=== PATIENT | male | born 1980 | race Caucasian/White ===

== ENCOUNTER 2016-11-12 14:16 | Emergency (ER) | payer SELFPAY ==
[~2016-11-12 14:16] MED LIST: Iopamidol 370 76% 125 ML VIAL FS ONE; Sodium Chloride 0.9% 100 ML BAG ONE
[2016-11-12] MEDS ORDERED: methylPREDNISolone Sod Succ/PF 125 MG/2 ML VIAL ONE (15:36)
[2016-11-12 16:00] LABS: ALT (SGPT) 38 U/L (0-55); AST (SGOT) 26 U/L (5-34); Albumin 4.1 g/dL (3.5-5.0); Alkaline Phosphatase 93 U/L (40-150); Anion Gap 18 mmol/L (10-20); BUN (Urea Nitrogen) 19 mg/dL (8.9-20.6); Bilirubin, Total 0.8 mg/dL (0.2-1.2); Calc. Creatinine Clearance 0 mL/min (70-130); Calcium 8.8 mg/dL (7.8-10.44); Carbon Dioxide 16 mmol/L (22-29); Chloride 109 mmol/L (98-107); Estimated GFR-MDRD 79; Globulin 2.9 g/dL (2.4-3.5); Glucose 118 mg/dL (70-105); Potassium 4.1 mmol/L (3.5-5.1); Sodium 139 mmol/L (136-145)
[2016-11-12 16:03] LABS: PTT 29.7 SEC (22.9-36.1); Prothrombin Time 13.9 SEC (12.0-14.7)
[2016-11-12 16:11] LABS: Lactic Acid 1.2 mmol/L (0.5-2.2)
[2016-11-12 16:18] LABS: D-Dimer Test 5.43 *mcg/mL (0.27-0.43)
[2016-11-12 16:21] LABS: #Basophils 0.1 thou/uL (0.0-0.2); #Eosinphils 0.2 thou/uL (0.0-0.7); #Lymphocytes 3.1 thou/uL (1.20-3.40); #Monocytes 0.8 thou/uL (0.11-0.59); #Neutrophils 6.3 thou/uL (1.40-6.50); %Basophils 1.4 % (0.0-1.0); %Eosinophils 1.9 % (0.0-10.0); %Lymphocytes 29.7 % (21.0-51.0); %Monocytes 7.1 % (0.0-10.0); %Neutrophils 59.9 % (42.0-75.0); Mean Corpuscular HGB CONC 34.4 g/dL (32.0-36.0); Mean Corpuscular Hemoglobin 31.2 pg (27.0-31.0); Mean Corpuscular Volume 90.6 fl (80.0-94.0); Mean Platelet Volume 6.4 fL (7.4-10.4); Platelet Count 325 thou/uL (130-400); RBC Distribution Width 12.6 % (11.5-14.5); Red Blood Cell (RBC) Count 4.49 mill/uL (4.70-6.10); White Blood Cell (WBC) Count 10.6 thou/uL (4.8-10.8)
[2016-11-12 16:26] LABS: Troponin I 0.028 ng/mL (< 0.028)
[2016-11-12 16:47] LABS: CKMB 0.8 ng/mL (0-6.6)
--- NOTE | 2016-11-12 17:05 | RAD ---
CHEST TWO VIEWS HISTORY: Cough. COMPARISON: 10/23/2016 FINDINGS: The heart size is enlarged. There is a parenchymal infiltrate in the left lower lobe. P arenchymal changes were seen on the previous exam, and appear fairly similar to that study. The per ihilar interstitial change seen on the prior exam has resolved. IMPRESSION 1. Cardiomegaly. 2. Left lower lobe infiltrate. POS: [facility]
--- NOTE | 2016-11-12 17:57 | ERRECORD ---
[facility] EMERGENCY RECORD HPI COUGH (14:42 LHOD) CHIEF COMPLAINT: Patient presents for evaluation of cough. HISTORIAN: History provided by patient. TIME COURSE: PT SEEN HERE 11/01--DIAGNOSED WITH LLL PNEUMONIA FOR WHICH HE WAS TREATED WITH ZITHROMAX FOR 10 DAYS. PT REPORTS FOR PAST 2 DAYS COUGH INCREASING WTIH DIFFUSE BODY ACHES. NOT AWARE IF FEVER. ROS (14:43 LHOD) CONSTITUTIONAL: Historian reports fatigue, denies fever. CARDIOVASCULAR: Historian denies chest pain. RESPIRATORY: Historian reports cough, reports shortness of breath. GI: Historian denies abdominal pain, denies nausea, denies vomiting. MUSCULOSKELETAL: Historian reports myalgias. SKIN: Historian denies rash. NEUROLOGIC: Historian denies headache. NOTES: All systems reviewed, negative except as described above. PAST MEDICAL HISTORY MEDICAL HISTORY: Flu vaccine not up to date, Tetanus immunization up to date, Pneumococcal vaccine not up to date, Past medical history includes cardiac history, coronary artery disease, Past medical history includes history of hypertension, which has been treated, Past medical history includes cardiac history, myocardial infarction, Treated with stent placement, Number of stents: 2, STATES 6 MA, Past medical history includes endocrine disease, hypothyroidism, Past medical history includes history of hypertension, which has been treated. ASCENDING AORTIC ANEURYSM. Flu vaccine not up to date, Tetanus immunization up to date, Pneumococcal vaccine not up to date, Past medical history includes history of hypertension, which has been treated, Past medical history includes cardiac history, myocardial infarction, Treated with stent placement, Number of stents: 2, STATES 6 MA, Past medical history includes endocrine disease, hypothyroidism, Past medical history includes history of hypertension, which has been treated. ASCENDING AORTIC ANEURYSM. 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 ([place] Nov 12, 2016 14:28 MDEB) PSYCHIATRIC HISTORY: no history of suicidal ideations, No history of suicide attempts, No history of hallucinations, No history of homicidal ideations, No history of violence towards others, Notes: PTSD. (Grace Nov 12, 2016 14:28 MDEB) SOCIAL HISTORY: Patient drinks socially, twice a month, Patient denies drug use, Patient currently uses tobacco, smokes cigarettes, Lives at home, with family, Patient drinks socially, rarely. (Grace Nov 12, 2016 14:28 MDEB) NOTES: Nursing records reviewed. (14:30 LHOD) &a-1R&a+25V*p+0X*[id number]*c202B*c15G*c2P*p-0X&a-25V&a+1R Name: Francesco Godfrey : 1980 M36 MedRec: [id number] AcctNum: [id number] Prepared: Grace Nov 12, 2016 18:17 by Interface Page 1 of 3 pMD [facility] EMERGENCY RECORD KNOWN ALLERGIES No Known Allergies (Unconfirmed) No Known Drug Allergies CURRENT MEDICATIONS No recorded medications VITAL SIGNS VITAL SIGNS: BP: 107/79, Pulse: 109, Resp: 20, Temp: 97.9 (Tympanic), Pain: 3, O2 sat: 97 on Room Air, Time: 11/12/2016 14:25. (14:25 MDEB) BP: 100/78, Pulse: 105, Resp: 24, Pain: 5, O2 sat: 98 on Room Air, Time: 11/12/2016 15:00. (15:00 MDEB) BP: 101/76, Pulse: 103, Resp: 22, O2 sat: 96 on Room Air, Time: 11/12/2016 15:30. (15:30 MDEB) BP: 102/79, Pulse: 106, Resp: 24, O2 sat: 97 on Room Air, Time: 11/12/2016 16:00. (16:00 MDEB) BP: 116/62, Pulse: 110, Resp: 26, O2 sat: 99 on Room Air, Time: 11/12/2016 16:30. (16:30 MDEB) BP: 107/83, Pulse: 107, Resp: 22, Temp: 97.7 (Tympanic), O2 sat: 95 on Room Air, Time: 11/12/2016 17:00. (17:00 MDEB) PHYSICAL EXAM (14:44 LHOD) CONSTITUTIONAL: Vital Signs Reviewed, Patient afebrile, Pulse, tachycardic, Blood pressure normal, Respiratory rate normal, Normal pulse oximetry, Patient alert and oriented to person, place and time, FREQUENT DRY COUGH. ENT: Pharynx exam normal. NECK: Neck exam included findings of normal range of motion, Trachea midline. RESPIRATORY CHEST: Respiratory exam included findings of no respiratory distress, No wheezing, Breath sounds diminished. CARDIOVASCULAR: Cardiovascular exam included findings of heart rate regular rate and rhythm, Heart sounds normal. ABDOMEN MALE: Abdominal exam included findings of abdomen nontender, Distension present. BACK: Back exam normal. UPPER EXTREMITY: Upper extremity exam normal. LOWER EXTREMITY: Left lower leg exam normal, Right lower leg exam normal. NEURO: Neuro exam findings include patient oriented to person, place and time, Speech normal. SKIN: no rash. EKG INTERPRETATION (16:02 LHOD) 12 LEAD EKG INTERPRETATION: 12 lead EKG interpreted by Emergency Department Physician at time of study, 12 lead EKG shows, sinus tachycardia, Rate (beats per minute): 103, with no &a-1R&a+25V*p+0X*n6205H*c202B*c15G*c2P*p-0X&a-25V&a+1R Name: Francesco Godfrey : 1980 M36 MedRec: [id number] AcctNum: [id number] Prepared: Grace Nov 12, 2016 18:17 by Interface Page 2 of 3 pMD [facility] EMERGENCY RECORD ectopics, T waves normal, [place] normal, Q WAVE IN LATERAL LEADS. POOR R WAVE PROGRESSION ANTERIOR LEADS. RADIOLOGYINTERPRETATION (15:16 LHOD) CHEST: Films of the chest show, to the left lower, Other findings: PACEMAKER, Chest CT, with contrast shows, patchy infiltrate, Other findings: MULTIPLE MEDIASTINAL AND HILAR ADENOPATHY WITH MULTIFOCAL PATCHY AIRSPACE DISEASE WITH CONSOLIDATION OF LEFT LINGULA, LEFT LOWER LOBE, RLL, RUL. STRANDING NEAR LATERAL PANCREATIC HEAD. LOW DENSITY LESIONS IN KIDNEYS WHICH MAY BE CYSTS, BUT UNABLE TO TELL WITH CERTAINTY., NO EVIDENCE OF PE. MEDICATION ADMINISTRATION SUMMARY Drug Name: methylPREDNISolone sodium succ intraveno, Dose Ordered: 125 mg, Route: IV Push, Status: Given, Time: 15:40 11/12/2016, Drug Name: DuoNeb, Dose Ordered: 3 mL, Route: Nebulize, Status: Given, Time: 14:45 11/12/2016, Detailed record available in Medication Service section. DOCTOR NOTES (16:30 LHOD) TEXT: 1630--AWAITING CT. 1641--CT COMPLETE. AWAITING REPORT. PT TELLS ME HIS HEALTH DIAGNOSTICS TEACHER IS , [facility] [id number]--ADVISED PT THAT WE TRANSFER HIM TO [facility] FOR WORKUP OF THE MULTIPLE NODULES / INFILTRATES IN HIS LUNGS FOR POSSIBLE INFECTIOUS OR MALIGNANCIES. PT REPORTS HE NEEDS TO SIGN OUT AMA. HE UNDERSTANDS RISK OF FROM CARDIORESPIRATORY FAILURE. HE REPORTS HE HAS TO TAKE HIS TRUCK SOMEWHERE, THEN WILL FOLLOW UP AT [facility] WITH HIS HEALTH DIAGNOSTICS TEACHER. HE IS MENTALLY COMPETENT AND SEEMS TO UNDERSTAND THE SERIOUS NATURE OF OUR FINDINGS. PROBLEM LIST No recorded problems DIAGNOSIS (17:10 LHOD) FINAL: PRIMARY: MULTI-LOBE PULMONARY LESIONS---UNKNOWN IF INFECTIOUS OR TUMORS, ADDITIONAL: CHF. PRESCRIPTION No recorded prescriptions DISPOSITION PATIENT: Disposition Type: Eloped, Disposition: Against Medical Advice, Condition: Guarded. (17:10 LHOD) Patient left the department. (17:41 MDEB) [place]: LHOD=MD Abbi, Harsha MDEB=DORY Kee, Nancy &a-1R&a+25V*p+0X*r2368R*c202B*c15G*c2P*p-0X&a-25V&a+1R Name: Francesco Godfrey : 1980 M36 MedRec: [id number] AcctNum: [id number] Prepared: Grace Nov 12, 2016 18:17 by Interface Page 3 of 3 pMD MTDD
--- NOTE | 2016-11-12 18:25 | PICIS ---
[facility] EMERGENCY RECORD TRIAGE (SunNov 12, 2016 14:28 MDEB) PATIENT: NAME: Francesco Godfrey, AGE: 36, GENDER: male, : Sun1980, TIME OF GREET: SunNov 12, 2016 14:17, PREFERRED LANGUAGE: Taiwanese, RACE: WHITE, ETHNICITY: Not or , FALL RISK: NO, ECODE BILLING MAP: [facility] ER, SSN: [id number], Zip Code: [address], KG WEIGHT: 109.77, PHONE: , , , PERSON ID: [id number], PCP: NO PCP. (SunNov 12, 2016 14:28 MDEB) TRIAGE NOTES: COUGH, FEEL BAD, "I CANT BREATH RIGHT" NOSE STOPPED UP. (SunNov 12, 2016 14:28 MDEB) COMPLAINT: NOT FEELING WELL. (SunNov 12, 2016 14:28 MDEB) ADMISSION: URGENCY: 3 Urgent, ADMISSION SOURCE: Home, TRANSPORT: Walk-in, BED: TRIAGE. (SunNov 12, 2016 14:28 MDEB) ASSESSMENT: Assessment: DX 3WKS WITH PNEUMONIA - PT FEELS THIS MAY BE COMING BACK. (SunNov 12, 2016 14:28 MDEB) PAIN: Patient complains of pain described as, aching, on a scale 0-10 patient rates pain as 3, Location ABD PAIN. (SunNov 12, 2016 14:28 MDEB) IMMUNIZATIONS: Tetanus immunization up to date. (SunNov 12, 2016 14:28 MDEB) TRIAGE SCREENING: Patient denies suicidal ideation, Patient denies presence of domestic violence. (SunNov 12, 2016 14:28 MDEB) PROVIDERS: TRIAGE NURSE: Nancy Kee RN. (SunNov 12, 2016 14:28 MDEB) VITAL SIGNS: BP 107/79, Pulse 109, Resp 20, Temp 97.9, (Tympanic), Pain 3, O2 Sat 97, on Room Air, Time 11/12/2016 14:25. (14:25 MDEB) PREVIOUS VISIT ALLERGIES: No Known Allergies. (SunNov 12, 2016 14:28 MDEB) KNOWN ALLERGIES No Known Allergies (Unconfirmed) No Known Drug Allergies CURRENT MEDICATIONS No recorded medications VITAL SIGNS VITAL SIGNS: BP: 107/79, Pulse: 109, Resp: 20, Temp: 97.9 (Tympanic), Pain: 3, O2 sat: 97 on Room Air, Time: 11/12/2016 14:25. (14:25 MDEB) BP: 100/78, Pulse: 105, Resp: 24, Pain: 5, O2 sat: 98 on Room Air, Time: 11/12/2016 15:00. (15:00 MDEB) BP: 101/76, Pulse: 103, Resp: 22, O2 sat: 96 on Room Air, Time: 11/12/2016 15:30. (15:30 MDEB) BP: 102/79, Pulse: 106, Resp: 24, O2 sat: 97 on Room Air, Time: 11/12/2016 16:00. (16:00 MDEB) BP: 116/62, Pulse: 110, Resp: 26, O2 sat: 99 on Room Air, Time: 11/12/2016 16:30. (16:30 MDEB) BP: 107/83, Pulse: 107, Resp: 22, Temp: 97.7 (Tympanic), O2 sat: 95 on &a-1R&a+25V*p+0X*b3552J*c202B*c15G*c2P*p-0X&a-25V&a+1R Name: Francesco Godfrey : 1980 M36 MedRec: [id number] AcctNum: [id number] Prepared: Grace Nov 12, 2016 18:22 by Interface Page 1 of 12 pMD [facility] EMERGENCY RECORD Room Air, Time: 11/12/2016 17:00. (17:00 MDEB) NURSING ASSESSMENT: RESPIRATORY /CHEST (14:51 MDEB) CONSTITUTIONAL: Patient arrives ambulatory, Gait steady, History obtained from patient, Patient appears comfortable, Patient cooperative, Patient alert, Oriented to person, place and time, Skin warm, Skin dry, Skin normal in color, Mucous membranes pink, Mucous membranes moist, Patient is well-groomed, Patient complains of COUGH, CONGESTION,. PAIN: on a scale 0-10 patient rates pain as 3, ABD PAIN. RESPIRATORY/CHEST: Lungs auscultated, Breath sounds with rhonchi, to the left upper lobe, to the left lower lobe, Respiratory assessment findings include respiratory effort easy, Respirations regular, Conversing normally, Neck and chest exam findings include trachea midline, Chest expansion equal, Chest movement symmetrical, Associated with cough, dry, non-productive. ENT: Ear assessment findings include ear normal to inspection, Nasal assessment findings include nose normal to inspection, Mouth and throat assessment findings include mouth inspection normal. NOTES: Emotional support needed and given, Patient tolerated procedure well. SAFETY: Side rails up, Cart/Stretcher in lowest position, Call light within reach, Hospital ID band on. NURSING PROCEDURE: ENGRAVER ORNAMENTAL DESIGN (14:40 MDEB) PATIENT IDENTIFIER: Patient actively involved in identification process, Patient's identity verified by patient stating name, Patient's identity verified by hospital ID bracelet. ENGRAVER ORNAMENTAL DESIGN: Cardiac monitoring indicated for COUGH, Patient placed on block making machine operator, Heart rate: 103, showing sinus tachycardia, Patient placed on non-invasive blood pressure monitor, Patient placed on continuous pulse oximetry. FOLLOW-UP: After procedure, alarms set and on, After procedure, patient tolerating monitoring. NOTES: Emotional support needed and given, Patient tolerated procedure well. SAFETY: Side rails up, Cart/Stretcher in lowest position, Family at bedside, Call light within reach, Hospital ID band on. NURSING PROCEDURE: DISCHARGE NOTE DISCHARGE: Patient signed out against medical advice, ambulating without assistance, driving self, unaccompanied, Summary of Care printed/ provided, Patient requested and was provided an electronic copy of Discharge Instructions, Transition record given to patient, Discharge instructions given to patient, Above person(s) verbalized understanding of discharge instructions and follow-up care, Patient treated and evaluated by physician, Notes: CT DISK ET LAB RESULTS SENT WITH PT. PT REPORTS HE WILL GO TO [facility] WHERE HIS &a-1R&a+25V*p+0X*o6193M*c202B*c15G*c2P*p-0X&a-25V&a+1R Name: Francesco Godfrey : 1980 M36 MedRec: [id number] AcctNum: [id number] Prepared: Grace Nov 12, 2016 18:22 by Interface Page 2 of 12 pMD [facility] EMERGENCY RECORD HOT WORKER IS BASED. (17:25 RACHEL) Patient discharged to home, ambulating without assistance, driving self, unaccompanied, Summary of Care printed/ provided, Patient requested and was provided an electronic copy of Discharge Instructions, Transition record given to patient, Discharge instructions given to patient, Above person(s) verbalized understanding of discharge instructions and follow-up care, Patient treated and evaluated by physician, Notes: CT DISK ET LAB RESULTS SENT. (17:38 MDEB) BELONGINGS: Belongings remain with patient, Valuables remain with patient. (17:25 MDEB) Belongings remain with patient, Valuables remain with patient. (17:38 MDEB) NOTES: Emotional support needed and given, Patient tolerated procedure well. (17:25 MDEB) Emotional support needed and given, Patient tolerated procedure well. (17:38 MDEB) NURSING PROCEDURE: EKG CHART (15:12 MDEB) PATIENT IDENTIFIER: Patient actively involved in identification process, Patient's identity verified by patient stating name, Patient's identity verified by hospital ID bracelet. EKG: EKG indicated for COUGH, CONGESTION,, 12 lead EKG performed on the left chest. FOLLOW-UP: After procedure, EKG for interpretation given to Dr. GO. NOTES: Emotional support needed and given, Patient tolerated procedure well. SAFETY: Side rails up, Cart/Stretcher in lowest position, Family at bedside, Call light within reach, Hospital ID band on. NURSING PROCEDURE: IV PATIENT IDENITIFIER: Patient actively involved in identification process, Patient's identity verified by patient stating name, Patient's identity verified by hospital ID bracelet. (15:20 MDEB) Patient actively involved in identification process, Patient's identity verified by patient stating name, Patient's identity verified by hospital ID bracelet. (17:10 MDEB) IV SITE 1: IV therapy indicated for medication administration, IV established, to the right antecubital, using an 18 gauge catheter, in three attempts, IV site prepped with ALCOHOL, Saline lock established, Flushed with normal saline (mls): 10, Labs drawn at time of placement, labeled in the presence of the patient and sent to lab, Blood cultures drawn at time of placement, labeled in the presence of the patient and sent to lab. (15:20 MDEB) FOLLOW-UP SITE 1: After procedure, sterile transparent dressing applied. (15:20 MDEB) IV discontinued, due to patient being discharged, catheter intact. (17:10 MDEB) NOTES: Emotional support needed and given, Patient tolerated procedure well. (15:20 MDEB) &a-1R&a+25V*p+0X*j8355W*c202B*c15G*c2P*p-0X&a-25V&a+1R Name: Francesco Godfrey : 1980 M36 MedRec: [id number] AcctNum: [id number] Prepared: Grace Nov 12, 2016 18:22 by Interface Page 3 of 12 pMD [facility] EMERGENCY RECORD Emotional support needed and given, Patient tolerated procedure well, Notes: LEAVING AMA WITH RESULTS FROM TESTING DUE TO FINANCIAL & TRAVEL CONCERNS. (17:10 MDEB) SAFETY: Side rails up, Cart/Stretcher in lowest position, Call light within reach, Hospital ID band on. (15:20 MDEB) NURSING PROCEDURE: TRANSPORT TO TESTS (16:16 MDEB) PATIENT IDENTIFIER: Patient actively involved in identification process, Patient's identity verified by patient stating name, Patient's identity verified by hospital ID bracelet. TRANSPORT TO TESTS: Transport indicated to facilitate diagnosis, Patient transported to CT scan, ambulatory, Accompanied by x-ray casting technician. NOTES: Emotional support needed and given, Patient tolerated procedure well. ORDER DETAILS Order Name: B type Natriuretic Peptide, Status: Active, Time: 15:04 11/12/2016, User: RON, - Ordered for: MD Go Lefayne, - Entered by: MD Go Lefayne - Grace Nov 12, 2016 15:04, - Quantity: 1, Order Name: Cardiac Profile w/CKMB & Troponin - I, Status: Active, Time: 15:04 11/12/2016, User: RON, - Ordered for: MD Go Lefayne, - Entered by: MD Go Lefayne - Grace Nov 12, 2016 15:04, - Quantity: 1, Order Name: CBC with Differential, Status: Active, Time: 15:04 11/12/2016, User: RON, - Ordered for: MD Go Lefayne, - Entered by: MD Go Lefayne - Grace Nov 12, 2016 15:04, - Quantity: 1, Order Name: Comprehensive Metabolic Panel, Status: Active, Time: 15:04 11/12/2016, User: RON, - Ordered for: MD Go Lefayne, - Entered by: MD Go Lefayne - Grace Nov 12, 2016 15:04, - Quantity: 1, Order Name: CTA Angio Chest W WO Con(PE Protocol), Status: Active, Time: 15:03 11/12/2016, User: RON, - Ordered for: MD Go Lefayne, - Entered by: MD Go Lefayne - Grace Nov 12, 2016 15:03, - Quantity: 1, Order Name: Culture, Blood, Status: Active, Time: 15:05 11/12/2016, User: RON, - Ordered for: MD Go Lefayne, - Entered by: MD Go Lefayne - Grace Nov 12, 2016 15:05, - Quantity: 1, Order Name: D-Dimer (Quantitative), Status: Active, Time: 15:04 11/12/2016, User: RON, &a-1R&a+25V*p+0X*d6495W*c202B*c15G*c2P*p-0X&a-25V&a+1R Name: Christianneluis Francesco Mike : 1980 M36 MedRec: [id number] AcctNum: [id number] Prepared: Grace Nov 12, 2016 18:22 by Interface Page 4 of 12 pMD [facility] EMERGENCY RECORD - Ordered for: MD Go Lefayne, - Entered by: MD Go Lefayne - Grace Nov 12, 2016 15:04, - Quantity: 1, Order Name: EKG 12 Lead in Emergency Room, Status: Active, Time: 15:04 11/12/2016, User: RON, - Ordered for: MD Go Lefayne, - Entered by: MD Go Lefayne - Grace Nov 12, 2016 15:04, - Quantity: 1, Order Name: ERRT * Smal Vol Neb Initial Trmt, Status: Active, Time: 14:35 11/12/2016, User: RON, - Ordered for: MD Go Lefayne, - Entered by: MD Go Lefayne - Sun Nov 12, 2016 14:35, - Quantity: 1, Order Name: Lactic Acid, Status: Active, Time: 16:04 11/12/2016, User: RON, - Ordered for: MD Go Lefayne, - Entered by: MD Go Lefayne - Sun Nov 12, 2016 16:04, - Quantity: 1, Order Name: Protime with INR, Status: Active, Time: 15:04 11/12/2016, User: RNO, - Ordered for: MD Go Lefayne, - Entered by: MD Go Lefayne - Sun Nov 12, 2016 15:04, - Quantity: 1, Order Name: PTT, Status: Active, Time: 15:04 11/12/2016, User: RON, - Ordered for: MD Go Lefayne, - Entered by: MD Go Lefayne - Sun Nov 12, 2016 15:04, - Quantity: 1, Order Name: SALINE LOCK, Status: Done, Time: 15:44 11/12/2016, User: RACHEL, - Ordered for: MD Go Lefayne, - Entered by: MD Go Lefayne - Sun Nov 12, 2016 15:04, - Quantity: 1, Order Name: XR Chest Pa & Lat STANDARD, Status: Active, Time: 14:35 11/12/2016, User: RON, - Ordered for: MD Go Lefayne, - Entered by: MD Go Lefayne - Sun Nov 12, 2016 14:35, - Quantity: 1. MEDICATION ADMINISTRATION SUMMARY Drug Name: methylPREDNISolone sodium succ intraveno, Dose Ordered: 125 mg, Route: IV Push, Status: Given, Time: 15:40 11/12/2016, Drug Name: DuoNeb, Dose Ordered: 3 mL, Route: Nebulize, Status: Given, Time: 14:45 11/12/2016, Detailed record available in Medication Service section. MEDICATION SERVICE DuoNeb: Order: DuoNeb (ipratropium bromide/albuterol sulfate) - Dose: 3 mL : Nebulize Ordered by: Harsha Go MD &a-1R&a+25V*p+0X*b6200L*c202B*c15G*c2P*p-0X&a-25V&a+1R Name: Francesco Godfrey : 1980 M36 MedRec: [id number] AcctNum: [id number] Prepared: Grace Nov 12, 2016 18:22 by Interface Page 5 of 12 pMD [facility] EMERGENCY RECORD Entered by: MD Grace Kitchen Nov 12, 2016 14:35 , Acknowledged by: DORY Barone Nov 12, 2016 14:46 Documented as given by: DORY Barone Nov 12, 2016 14:45 Patient, Medication, Dose, Route and Time verified prior to administration. Amount given: 3 ML, Site: Medication administered via Hand-held nebulizer, With oxygen, Correct patient, time, route, dose and medication confirmed prior to administration, Patient advised of actions and side-effects prior to administration, Allergies confirmed and medications reviewed prior to administration, Patient in position of comfort, Side rails up, Cart in lowest position, Family at bedside. methylPREDNISolone sodium succ intravenous: Order: methylPREDNISolone sodium succ intravenous (methylprednisolone sod succ) - Dose: 125 mg : IV Push Ordered by: Harsha Go MD Entered by: MD Grace Kitchen Nov 12, 2016 15:05 , Acknowledged by: DORY Barone Nov 12, 2016 15:35 Documented as given by: DORY Barone Nov 12, 2016 15:40 Patient, Medication, Dose, Route and Time verified prior to administration. Amount given: 125 MG, IV SITE #1 IVP, initial medication, Slowly, Catheter placement confirmed via flush prior to administration, IV site without signs or symptoms of infiltration during medication administration, No swelling during administration, No drainage during administration, IV flushed after administration, Correct patient, time, route, dose and medication confirmed prior to administration, Patient advised of actions and side-effects prior to administration, Allergies confirmed and medications reviewed prior to administration, Patient in position of comfort, Side rails up, Cart in lowest position, Family at bedside. HPI COUGH (14:42 LHOD) CHIEF COMPLAINT: Patient presents for evaluation of cough. HISTORIAN: History provided by patient. TIME COURSE: PT SEEN HERE 11/01--DIAGNOSED WITH LLL PNEUMONIA FOR WHICH HE WAS TREATED WITH ZITHROMAX FOR 10 DAYS. PT REPORTS FOR PAST 2 DAYS COUGH INCREASING WTIH DIFFUSE BODY ACHES. NOT AWARE IF FEVER. ROS (14:43 LHOD) CONSTITUTIONAL: Historian reports fatigue, denies fever. CARDIOVASCULAR: Historian denies chest pain. RESPIRATORY: Historian reports cough, reports shortness of breath. GI: Historian denies abdominal pain, denies nausea, denies vomiting. MUSCULOSKELETAL: Historian reports myalgias. SKIN: Historian denies rash. &a-1R&a+25V*p+0X*p7003H*c202B*c15G*c2P*p-0X&a-25V&a+1R Name: Francesco Godfrey : 1980 M36 MedRec: [id number] AcctNum: [id number] Prepared: Grace Nov 12, 2016 18:22 by Interface Page 6 of 12 pMD [facility] EMERGENCY RECORD NEUROLOGIC: Historian denies headache. NOTES: All systems reviewed, negative except as described above. PAST MEDICAL HISTORY MEDICAL HISTORY: Flu vaccine not up to date, Tetanus immunization up to date, Pneumococcal vaccine not up to date, Past medical history includes cardiac history, coronary artery disease, Past medical history includes history of hypertension, which has been treated, Past medical history includes cardiac history, myocardial infarction, Treated with stent placement, Number of stents: 2, STATES 6 DC, Past medical history includes endocrine disease, hypothyroidism, Past medical history includes history of hypertension, which has been treated. ASCENDING AORTIC ANEURYSM. Flu vaccine not up to date, Tetanus immunization up to date, Pneumococcal vaccine not up to date, Past medical history includes history of hypertension, which has been treated, Past medical history includes cardiac history, myocardial infarction, Treated with stent placement, Number of stents: 2, STATES 6 DC, Past medical history includes endocrine disease, hypothyroidism, Past medical history includes history of hypertension, which has been treated. ASCENDING AORTIC ANEURYSM. 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 (Grace Nov 12, 2016 14:28 MDEB) PSYCHIATRIC HISTORY: no history of suicidal ideations, No history of suicide attempts, No history of hallucinations, No history of homicidal ideations, No history of violence towards others, Notes: PTSD. (Grace Nov 12, 2016 14:28 MDEB) SOCIAL HISTORY: Patient drinks socially, twice a month, Patient denies drug use, Patient currently uses tobacco, smokes cigarettes, Lives at home, with family, Patient drinks socially, rarely. (Grace Nov 12, 2016 14:28 MDTEENA) NOTES: Nursing records reviewed. (14:30 LHOD) PHYSICAL EXAM (14:44 LHOD) CONSTITUTIONAL: Vital Signs Reviewed, Patient afebrile, Pulse, tachycardic, Blood pressure normal, Respiratory rate normal, Normal pulse oximetry, Patient alert and oriented to person, place and time, FREQUENT DRY COUGH. ENT: Pharynx exam normal. NECK: Neck exam included findings of normal range of motion, Trachea midline. RESPIRATORY CHEST: Respiratory exam included findings of no respiratory distress, No wheezing, Breath sounds diminished. CARDIOVASCULAR: Cardiovascular exam included findings of heart rate regular rate and rhythm, Heart sounds normal. ABDOMEN MALE: Abdominal exam included findings of abdomen nontender, Distension present. BACK: Back exam normal. UPPER EXTREMITY: Upper extremity exam normal. &a-1R&a+25V*p+0X*m7689S*c202B*c15G*c2P*p-0X&a-25V&a+1R Name: Francesco Godfrey : 1980 M36 MedRec: [id number] AcctNum: [id number] Prepared: Grace Nov 12, 2016 18:22 by Interface Page 7 of 12 D [facility] EMERGENCY RECORD LOWER EXTREMITY: Left lower leg exam normal, Right lower leg exam normal. NEURO: Neuro exam findings include patient oriented to person, place and time, Speech normal. SKIN: no rash. LAB INTERPRETATION (16:02 LHOD) INTERPRETATION: I reviewed the lab results, CBC normal, Chemistry abnormal, Bicarbonate decreased, Cardiac enzymes abnormal, BNP elevated, PT normal, PTT normal, D-dimer, elevated, Lactate normal. EVENTS TRANSFER: Triage to Emergency Triage. (Grace Nov 12, 2016 14:28 MDTEENA) Emergency Triage to Main ED -05. (14:28 MDEB) Removed from Emergency Main ED -05. (17:41 MDEB) RADIOLOGYINTERPRETATION (15:16 LHOD) CHEST: Films of the chest show, to the left lower, Other findings: PACEMAKER, Chest CT, with contrast shows, patchy infiltrate, Other findings: MULTIPLE MEDIASTINAL AND HILAR ADENOPATHY WITH MULTIFOCAL PATCHY AIRSPACE DISEASE WITH CONSOLIDATION OF LEFT LINGULA, LEFT LOWER LOBE, RLL, RUL. STRANDING NEAR LATERAL PANCREATIC HEAD. LOW DENSITY LESIONS IN KIDNEYS WHICH MAY BE CYSTS, BUT UNABLE TO TELL WITH CERTAINTY., NO EVIDENCE OF PE. EKG INTERPRETATION (16:02 LHOD) 12 LEAD EKG INTERPRETATION: 12 lead EKG interpreted by Emergency Department Physician at time of study, 12 lead EKG shows, sinus tachycardia, Rate (beats per minute): 103, with no ectopics, T waves normal, [place] normal, Q WAVE IN LATERAL LEADS. POOR R WAVE PROGRESSION ANTERIOR LEADS. DOCTOR NOTES (16:30 LHOD) TEXT: 1630--AWAITING CT. 1641--CT COMPLETE. AWAITING REPORT. PT TELLS ME HIS HOT WORKER IS , [facility] 9617--ADVISED PT THAT WE TRANSFER HIM TO [facility] FOR WORKUP OF THE MULTIPLE NODULES / INFILTRATES IN HIS LUNGS FOR POSSIBLE INFECTIOUS OR MALIGNANCIES. PT REPORTS HE NEEDS TO SIGN OUT AMA. HE UNDERSTANDS RISK OF FROM CARDIORESPIRATORY FAILURE. HE REPORTS HE HAS TO TAKE HIS TRUCK SOMEWHERE, THEN WILL FOLLOW UP AT [facility] WITH HIS HOT WORKER. HE IS MENTALLY COMPETENT AND SEEMS TO UNDERSTAND THE SERIOUS NATURE OF OUR FINDINGS. PROBLEM LIST No recorded problems &a-1R&a+25V*p+0X*a7308Y*c202B*c15G*c2P*p-0X&a-25V&a+1R Name: Francesco Godfrey : 1980 M36 MedRec: [id number] AcctNum: [id number] Prepared: Grace Nov 12, 2016 18:22 by Interface Page 8 of 12 pMD [facility] EMERGENCY RECORD DIAGNOSIS (17:10 LHOD) FINAL: PRIMARY: MULTI-LOBE PULMONARY LESIONS---UNKNOWN IF INFECTIOUS OR TUMORS, ADDITIONAL: CHF. DISPOSITION PATIENT: Disposition Type: Eloped, Disposition: Against Medical Advice, Condition: Guarded. (17:10 LHOD) Patient left the department. (17:41 MDEB) INSTRUCTION (17:11 LHOD) DISCHARGE: LUNG MASS NEW, CHF, GENERAL. FOLLOWUP: Follow up with Primary Care Physician as soon as possible, Follow up with Specialist as soon as possible. SPECIAL: NEED TO EMERGENTLY BE EVALUATED BY YOUR HOT WORKER AND A CANDLE MOLDER MACHINE. *RETURN IF WORSE CALL 911 NEEDED. PRESCRIPTION No recorded prescriptions IMAGING *EKG: Image captured from scanner. (16:02 MDEB) *DISCHARGE INSTRUCTIONS RECEIPT: Image captured from scanner. (17:39 MDEB) *SUPPLY CHARGE SHEET: Image captured from scanner. (17:39 MDEB) AMA: Image captured from scanner. (17:40 MDEB) ADMIN (18:14 OD) DIGITAL SIGNATURE: MD Go Lefayne. RESULTS LABORATORY: Comprehensive Metabolic Panel Collection DT: Grace Nov 12, 2016 15:36, Sodium 139 mmol/L, Range (136-145), Potassium 4.1 mmol/L, Range (3.5-5.1), *Chloride 109 - H mmol/L, Range (98-107), *Carbon Dioxide 16 - L mmol/L, Range (22-29), Anion Gap 18 mmol/L, Range (10-20), BUN (Urea Nitrogen) 19 mg/dL, Range (8.9-20.6), Creatinine 1.06 mg/dL, Range (0.7-1.3), Estimated GFR-MDRD 79 , Reference Range for Estimated GFR: Greater than 90, mL/min/1.73 m2 NOTE: The MDRD equation has not been validated for use, with the elderly (over 70 years of age), women, patients with, serious comorbid condition or persons with extremes of body size, muscle, mass, or nutritional status. , &a-1R&a+25V*p+0X*e6431H*c202B*c15G*c2P*p-0X&a-25V&a+1R Name: Francesco Godfrey : 1980 M36 MedRec: [id number] AcctNum: [id number] Prepared: Grace Nov 12, 2016 18:22 by Interface Page 9 of 12 pMD [facility] EMERGENCY RECORD *Glucose 118 - H mg/dL, Range (70-105), Calcium 8.8 mg/dL, Range (7.8-10.44), Bilirubin, Total 0.8 mg/dL, Range (0.2-1.2), Protein, Total 7.0 g/dL, Range (6.0-8.3), NOTE: Plasma values are generally 0.3 to 0.5 g/dL higher than serum values, due to the presence of fibrinogen. , Albumin 4.1 g/dL, Range (3.5-5.0), Globulin 2.9 g/dL, Range (2.4-3.5), Alb/Glob Ratio 1.4 g/dL, Range (1.2-2.2), Alkaline Phosphatase 93 U/L, Range (40-150), AST (SGOT) 26 U/L, Range (5-34), ALT (SGPT) 38 U/L, Range (0-55). (16:02 LHOD) Lactic Acid Collection DT: [place] Nov 12, 2016 16:10, Lactic Acid 1.2 mmol/L, Range (0.5-2.2). (16:13 LHOD) D-Dimer (Quantitative) Collection DT: [place] Nov 12, 2016 15:36, See comment below , Anticoagulant? NONE Medical Necessity SUSPECT COAGULOPATHY . (16:15 LHOD) PTT Collection DT: [place] Nov 12, 2016 15:36, See comment below , Anticoagulant? NONE Medical Necessity SUSPECT COAGULOPATHY , PTT 29.7 SEC, Range (22.9-36.1). (16:15 LHOD) Protime with INR Collection DT: [place] Nov 12, 2016 15:36, See comment below , Anticoagulant? NONE Medical Necessity SUSPECT COAGULOPATHY , Prothrombin Time 13.9 SEC, Range (12.0-14.7), INR-International Normal Ratio 1.0 , ATTENTION: READ CAREFULLY , The, recommended therapeutic ranges for oral anticoagulant treatments are: , , Low Intensity: 1.5 - 2.0 Moderate Intensity: 2.0, - 3.0 High Intensity (1): 2.5 - 3.5 High, Intensity (2): 3.0 - 4.0 CRITICAL: >, 4.0 . (16:15 LHOD) D-Dimer (Quantitative) Collection DT: [place] Nov 12, 2016 15:36, See comment below , Anticoagulant? NONE Medical Necessity SUSPECT COAGULOPATHY , *D-Dimer Test 5.43 - H *mcg/mL, Range (0.27-0.43), * Reference Range Units: mcg/mL of fibrinogen equivalent, units(FEU) Based upon a retrospective study of [facility] patients in March 2006, a result of &a-1R&a+25V*p+0X*p4983W*c202B*c15G*c2P*p-0X&a-25V&a+1R Name: Francesco Godfrey : 1980 M36 MedRec: [id number] AcctNum: [id number] Prepared: [place] Nov 12, 2016 18:22 by Interface Page 10 of 12 pMD [facility] EMERGENCY RECORD Less than 0.44 mcg/mL FEU is, predictive of the absence of a DVT or PE. . (16:21 LHOD) PTT Collection DT: [place] Nov 12, 2016 15:36, See comment below , Anticoagulant? NONE Medical Necessity SUSPECT COAGULOPATHY , PTT 29.7 SEC, Range (22.9-36.1). (16:21 LHOD) Protime with INR Collection DT: [place] Nov 12, 2016 15:36, See comment below , Anticoagulant? NONE Medical Necessity SUSPECT COAGULOPATHY , Prothrombin Time 13.9 SEC, Range (12.0-14.7), INR-International Normal Ratio 1.0 , ATTENTION: READ CAREFULLY , The, recommended therapeutic ranges for oral anticoagulant treatments are: , , Low Intensity: 1.5 - 2.0 Moderate Intensity: 2.0, - 3.0 High Intensity (1): 2.5 - 3.5 High, Intensity (2): 3.0 - 4.0 CRITICAL: >, 4.0 . (16:21 LHOD) CBC with Differential Collection DT: Grace Nov 12, 2016 15:36, White Blood Cell (WBC) Count 10.6 thou/uL, Range (4.8-10.8), *Red Blood Cell (RBC) Count 4.49 - L mill/uL, Range (4.70-6.10), Hemoglobin 14.0 g/dL, Range (14.0-18.0), *Hematocrit 40.7 - L %, Range (42.0-52.0), Mean Corpuscular Volume 90.6 fl, Range (80.0-94.0), *Mean Corpuscular Hemoglobin 31.2 - H pg, Range (27.0-31.0), Mean Corpuscular HGB CONC 34.4 g/dL, Range (32.0-36.0), RBC Distribution Width 12.6 %, Range (11.5-14.5), Platelet Count 325 thou/uL, Range (130-400), *Mean Platelet Volume 6.4 - L fL, Range (7.4-10.4), %Neutrophils 59.9 %, Range (42.0-75.0), %Lymphocytes 29.7 %, Range (21.0-51.0), %Monocytes 7.1 %, Range (0.0-10.0), %Eosinophils 1.9 %, Range (0.0-10.0), *%Basophils 1.4 - H %, Range (0.0-1.0), #Neutrophils 6.3 thou/uL, Range (1.40-6.50), #Lymphocytes 3.1 thou/uL, Range (1.20-3.40), *#Monocytes 0.8 - H thou/uL, Range (0.11-0.59), #Eosinphils 0.2 thou/uL, Range (0.0-0.7), #Basophils 0.1 thou/uL, Range (0.0-0.2). (16:24 LHOD) B type Natriuretic Peptide Collection DT: [place] Nov 12, 2016 15:36, *B type Natriuretic Peptide 838.7 - H pg/mL, Range (0-100). (16:28 LHOD) &a-1R&a+25V*p+0X*b8377I*c202B*c15G*c2P*p-0X&a-25V&a+1R Name: Francesco Godfrey : 1980 M36 MedRec: [id number] AcctNum: [id number] Prepared: [place] Nov 12, 2016 18:22 by Interface Page 11 of 12 pMD [facility] EMERGENCY RECORD Cardiac Profile w/CKMB & TropI Collection DT: [place] Nov 12, 2016 15:36, Troponin I 0.028 ng/mL, Range (< 0.028), Reference Range , 0.00 - 0.028 ng/mL Negative 0.029 - 0.29 ng/mL , Indeterminate Greater or Equal to 0.3 ng/mL Strongly suggests DC , . (16:28 LHOD) Cardiac Profile w/CKMB & TropI Collection DT: [place] Nov 12, 2016 15:36, CKMB 0.8 ng/mL, Range (0-6.6), Troponin I 0.028 ng/mL, Range (< 0.028), Reference Range , 0.00 - 0.028 ng/mL Negative 0.029 - 0.29 ng/mL , Indeterminate Greater or Equal to 0.3 ng/mL Strongly suggests DC , . (16:50 LHOD) [place]: LHOD=MD Abbi, Harsha LUCIOEB=DORY Kee, Nancy &a-1R&a+25V*p+0X*e2492V*c202B*c15G*c2P*p-0X&a-25V&a+1R Name: Francesco Godfrey : 1980 M36 MedRec: [id number] AcctNum: [id number] Prepared: Grace Nov 12, 2016 18:22 by Interface Page 12 of 12 pMD MTDD
--- NOTE | 2016-11-12 19:21 | CT ---
CT ANGIOGRAM CHEST: Date: 11-12-16 History: Cough, labored breathing. Assess for pulmonary embolism. Technique: Serial axial CT imaging at 2.5 mm intervals from the thoracic inlet through the upper ab domen with IV contrast using a CT angiogram protocol. Coronal and oblique sagittal 3D reformatted i maging obtained. FINDINGS: No axillary lymphadenopathy is noted. A transvenous AICD is present. Cardiac silhouette is enlarge d on recreation clerk imaging. Multiple enlarged mediastinal and hilar lymph nodes are noted, new when compared to the CT angiogram of the chest performed 04-18-16. This includes multiple superior mediastinal nodes, enlarged right paratracheal and pretracheal lymph nodes measuring up to 1.8 cm in short axis dimension, subcarinal adenopathy measuring up to 2.2 cm in short axis dimension, right hilar adenopathy measuring up to 1. 3 cm in short axis dimension and left hilar lymphadenopathy also measuring up to 1.3 cm in short axi s dimension. There is no pulmonary arterial filling defect seen to suggest the presence of acute pulmonary emboli sm. No significant pleural, paracardial or mediastinal fluid is noted. No pneumothorax seen on either s grace. There is multifocal irregular patchy airspace disease noted within the inferior aspect of the lingul a seen anteriorly and laterally, as well as inferiorly, most conspicuous on axial image 86. There i s a focal area of medial consolidation involving the inferior left lower lobe. There is a similar f ocal area of consolidation involving the medial and inferior aspect of the right lower lobe. Elsewh ere within the right lower lobe there are ill-defined areas of patchy nodular opacity, primarily inf eriorly located. Within the anterior and medial aspect of the right upper lobe inferiorly there is patchy reticular n odular opacity. Similar posterior reticular nodule density noted in the right middle lobe (image 78 ). Partially imaged upper abdomen demonstrates prominence of the liver, which measures at least 30.1 cm in greatest transverse dimension. There is gallbladder wall thickening and/or pericholecystic flui d, new when compared to prior CT angiogram of abdomen 04-28-16. There is partially imaged new inflammatory appearing stranding lateral to the pancreatic head right of midline, inseparable from the visualized portions of the duodenum, which appear inflammatory in n ature. This process is not fully imaged on this exam. There are low densities lesions within both kidneys, incompletely assessed on this examination, some of which are too small to characterize, likely on the basis of renal cysts. Recommend a follow up renal ultrasound for full characterization. Osseous structures demonstrate no worrisome lytic or blastic bone lesions. IMPRESSION: 1. No evidence for pulmonary embolism. 2. Extensive new mediastinal and bilateral hilar lymphadenopathy. There is also extensive pulmonar y parenchymal opacity with multifocal reticular nodular density and multifocal consolidation. Pulmo nary parenchymal findings suggest multifocal infectious pneumonitis or aspiration. Lymphadenopathy may thus be reactive in nature. Short term follow up imaging following treatment to document resolu tion advised as malignancy is a possibility as well. 3. Hepatomegaly. 4. Incompletely imaged nonspecific stranding change within the fat adjacent to the pancreas and duo denum. There is also probable gallbladder wall thickening and/or pericholecystic fluid. Findings s uggest a nonspecific inflammatory process within the right upper quadrant which could be related to the gallbladder, the pancreas, or the duodenum. Dedicated abdominal imaging suggested. Code T POS: [facility]
== END 2016-11-12 17:25 | disposition left against medical advice (07) ==
LOC: MADERS 14:16
DX: J98.4 Other disorders of lung (principal); I11.0 Hypertensive heart disease with heart failure; I50.9 Heart failure, unspecified; I25.2 Old myocardial infarction; I25.10 Atherosclerotic heart disease of native coronary artery without angina pectoris; E03.9 Hypothyroidism, unspecified; F17.210 Nicotine dependence, cigarettes, uncomplicated; Z95.5 Presence of coronary angioplasty implant and graft; Z95.0 Presence of cardiac pacemaker
CPT/HCPCS: 36415; 71020; 71275; 80053; 82553; 83605; 83880; 84484; 85025; 85379; 85610; 85730; 87040; 93005; 94640; 96374; J2930; J7050; J7620

== ENCOUNTER 2017-02-16 17:46 | Emergency (ER) | payer OTHER ==
[2017-02-16 18:41] LABS: #Basophils 0.1 thou/uL (0.0-0.2); #Eosinphils 0.2 thou/uL (0.0-0.7); #Lymphocytes 2.6 thou/uL (1.20-3.40); #Monocytes 0.8 thou/uL (0.11-0.59); %Basophils 1.4 % (0.0-1.0); %Eosinophils 2.3 % (0.0-10.0); %Lymphocytes 26.7 % (21.0-51.0); %Monocytes 7.9 % (0.0-10.0); %Neutrophils 61.7 % (42.0-75.0); Hemoglobin 16.7 g/dL (14.0-18.0); Mean Corpuscular HGB CONC 32.8 g/dL (32.0-36.0); Mean Corpuscular Hemoglobin 28.7 pg (27.0-31.0); Mean Corpuscular Volume 87.6 fl (80.0-94.0); Mean Platelet Volume 7.8 fL (7.4-10.4); Platelet Count 240 thou/uL (130-400); RBC Distribution Width 16.4 % (11.5-14.5); Red Blood Cell (RBC) Count 5.81 mill/uL (4.70-6.10); White Blood Cell (WBC) Count 9.8 thou/uL (4.8-10.8)
[2017-02-16 18:44] LABS: INR-International Normal Ratio 1.3
== END 2017-02-16 19:22 | disposition home or self-care (01) ==
LOC: MADERS 17:46
DX: K52.9 Noninfective gastroenteritis and colitis, unspecified (principal); K62.5 Hemorrhage of anus and rectum; I25.2 Old myocardial infarction; E03.9 Hypothyroidism, unspecified; I10 Essential (primary) hypertension; F41.9 Anxiety disorder, unspecified; F17.210 Nicotine dependence, cigarettes, uncomplicated; Z79.82 Long term (current) use of aspirin; Z79.899 Other long term (current) drug therapy; Z79.01 Long term (current) use of anticoagulants
CPT/HCPCS: 36415; 85025; 85610; 99284

== ENCOUNTER 2017-04-15 12:39 | Emergency (ER) | payer MEDICARE ==
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
[2017-04-15 13:48] LABS: INR-International Normal Ratio 1.6; PTT 34.3 SEC (22.9-36.1); Prothrombin Time 19.4 SEC (12.0-14.7)
[2017-04-15 13:50] LABS: #Basophils 0.1 thou/uL (0.0-0.2); #Eosinphils 0.2 thou/uL (0.0-0.7); #Lymphocytes 1.9 thou/uL (1.20-3.40); #Monocytes 0.8 thou/uL (0.11-0.59); #Neutrophils 7.3 thou/uL (1.40-6.50); %Basophils 1.1 % (0.0-1.0); %Eosinophils 1.7 % (0.0-10.0); %Lymphocytes 18.3 % (21.0-51.0); %Monocytes 7.6 % (0.0-10.0); %Neutrophils 71.3 % (42.0-75.0); Hemoglobin 16.8 g/dL (14.0-18.0); Mean Corpuscular HGB CONC 34.7 g/dL (32.0-36.0); Mean Corpuscular Hemoglobin 30.7 pg (27.0-31.0); Mean Corpuscular Volume 88.5 fl (80.0-94.0); Mean Platelet Volume 8.6 fL (7.4-10.4); Platelet Count 217 thou/uL (130-400); RBC Distribution Width 14.7 % (11.5-14.5); Red Blood Cell (RBC) Count 5.48 mill/uL (4.70-6.10); White Blood Cell (WBC) Count 10.3 thou/uL (4.8-10.8)
[2017-04-15 13:55] LABS: ALT (SGPT) 32 U/L (8-55); AST (SGOT) 17 U/L (5-34); Albumin 4.2 g/dL (3.5-5.0); Alkaline Phosphatase 73 U/L (40-150); Anion Gap 14 mmol/L (10-20); BUN (Urea Nitrogen) 13 mg/dL (8.9-20.6); Bilirubin, Total 0.7 mg/dL (0.2-1.2); CK (CPK) 41 U/L (30-200); Calc. Creatinine Clearance 0 mL/min (70-130); Calcium 9.2 mg/dL (7.8-10.44); Carbon Dioxide 22 mmol/L (22-29); Chloride 107 mmol/L (98-107); Estimated GFR-MDRD Greater than 90; Globulin 2.5 g/dL (2.4-3.5); Glucose 107 mg/dL (70-105); Potassium 4.1 mmol/L (3.5-5.1); Protein, Total 6.7 g/dL (6.0-8.3); Sodium 139 mmol/L (136-145)
[2017-04-15 14:01] LABS: CKMB 0.7 ng/mL (0-6.6); Troponin I 0.028 ng/mL (< 0.028)
== END 2017-04-15 15:15 | disposition home or self-care (01) ==
LOC: MADERS 12:39
DX: T75.4XXA Electrocution, initial encounter (principal); T21.01XA Burn of unspecified degree of chest wall, initial encounter; I10 Essential (primary) hypertension; I25.2 Old myocardial infarction; E03.9 Hypothyroidism, unspecified; I71.2 Thoracic aortic aneurysm, without rupture; F41.9 Anxiety disorder, unspecified; F43.10 Post-traumatic stress disorder, unspecified; F17.210 Nicotine dependence, cigarettes, uncomplicated; W86.8XXA Exposure to other electric current, initial encounter
CPT/HCPCS: 36415; 71010; 80053; 82553; 83880; 84484; 85025; 85610; 85730; 93005

== ENCOUNTER 2017-06-05 17:03 | Outpatient (CLI) | payer MEDICARE ==
--- NOTE | 2017-06-05 19:37 | RAD ---
CERVICAL SPINE FOUR VIEWS 06/05/17 COMPARISON: None. HISTORY: Neuropathic pain. FINDINGS: Incompletely imaged transvenous pacing device noted. Postsurgical clips are seen anterior to the tra mildred at the cervicothoracic junction level. Cervical vertebral body height and alignment appears grossly unremarkable. Open mouth odontoid view demonstrates a normal appearing dens and C1-2 articulation. No prevertebral soft tissue swelling. IMPRESSION: No acute findings. POS: [facility]
--- NOTE | 2017-06-05 20:04 | RAD ---
THREE VIEWS OF THE LUMBAR SPINE 06/05/17 COMPARISON: None. HISTORY: Neuropathy. FINDINGS: Lumbar vertebral body height and alignment appears within normal limits. Five lumbar type vertebral bodies are present with intact pedicles on frontal imaging. A transitional S1 vertebral body is note d, lumbarized on the right. No evidence for acute fracture or dislocation. IMPRESSION: No acute findings. POS: [facility]
== END 2017-06-05 17:04 | disposition home or self-care (01) ==
LOC: MADRAD 17:03
PROVIDERS: ATTEND Family Medicine
DX: G57.92 Unspecified mononeuropathy of left lower limb (principal); G56.90 Unspecified mononeuropathy of unspecified upper limb; I51.3 Intracardiac thrombosis, not elsewhere classified
CPT/HCPCS: 72040; 72100

== ENCOUNTER 2018-09-05 20:33 | Emergency (ER) | payer MEDICARE ==
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
--- NOTE | 2018-09-05 22:30 | CT ---
CT FACIAL BONES 09/05/18 HISTORY: Trauma. Patient fell, facial pain. FINDINGS: There is no evidence of a fracture. The visualized orbits have a normal symmetric appearance bilater ally. The visualized paranasal sinuses and mastoid air cells are clear. There are a few dental caries involving a few left sided maxillary and mandibular teeth. IMPRESSION: No acute fracture involving the facial bones. POS: [facility]
--- NOTE | 2018-09-05 22:32 | RAD ---
FOUR VIEWS RIGHT KNEE: 09/05/18 HISTORY: Right knee pain after a fall. FINDINGS: There is no evidence of a fracture, dislocation, or other osseous abnormality involving the right kne e. IMPRESSION: No acute osseous abnormality. POS: [facility]
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
== END 2018-09-05 22:17 | disposition home or self-care (01) ==
LOC: MADERS 20:33
DX: S00.83XA Contusion of other part of head, initial encounter (principal); S80.12XA Contusion of left lower leg, initial encounter; S80.01XA Contusion of right knee, initial encounter; I10 Essential (primary) hypertension; I25.2 Old myocardial infarction; E03.9 Hypothyroidism, unspecified; Z86.73 Personal history of transient ischemic attack (TIA), and cerebral infarction without residual deficits; F41.9 Anxiety disorder, unspecified; F17.210 Nicotine dependence, cigarettes, uncomplicated; Z79.899 Other long term (current) drug therapy; Z79.82 Long term (current) use of aspirin; W17.89XA Other fall from one level to another, initial encounter
CPT/HCPCS: 70450; 70486; 99406

== ENCOUNTER 2019-10-26 08:57 | Emergency (ER) | payer MEDICARE ==
[2019-10-26] MEDS ORDERED: Cyclobenzaprine 10 MG TAB ONE (10:44)
[2019-10-26] MEDS ORDERED: HYDROcodone/Acetaminophen 5/325 mg Tablet ONE (10:44)
--- NOTE | 2019-10-26 12:43 | CT ---
CERVICAL SPINE CT SCAN WITHOUT IV CONTRAST: Date: 10/26/19 HISTORY: Midline pain. Injury from a fall. FINDINGS: No fracture or dislocation. No significant malalignment. No prevertebral soft tissue swelling. IMPRESSION: Unremarkable cervical spine CT. POS: [facility]
--- NOTE | 2019-10-26 12:44 | CT ---
BRAIN CT WITHOUT IV CONTRAST: Date: 10/26/19 HISTORY: Injury, fall, hit head. Patient on Plavix. COMPARISON: 09/05/18. FINDINGS: No focal mass or midline shift. No intra or extra-axial hemorrhage. Sinuses and mastoids are clear. IMPRESSION: No significant acute intracranial process. No mass or bleed. POS: [facility]
== END 2019-10-26 10:48 | disposition home or self-care (01) ==
LOC: MADERS 08:57
DX: S00.03XA Contusion of scalp, initial encounter (principal); S50.12XA Contusion of left forearm, initial encounter; S70.02XA Contusion of left hip, initial encounter; E03.9 Hypothyroidism, unspecified; I10 Essential (primary) hypertension; I25.2 Old myocardial infarction; F43.10 Post-traumatic stress disorder, unspecified; F17.210 Nicotine dependence, cigarettes, uncomplicated; Z79.82 Long term (current) use of aspirin; Z79.899 Other long term (current) drug therapy; Z79.01 Long term (current) use of anticoagulants; Z95.5 Presence of coronary angioplasty implant and graft; Z86.73 Personal history of transient ischemic attack (TIA), and cerebral infarction without residual deficits; W18.2XXA Fall in (into) shower or empty bathtub, initial encounter
CPT/HCPCS: 70450; 72125; L0120

== ENCOUNTER 2019-12-11 19:05 | Emergency (ER) | payer MEDICARE ==
[~2019-12-11 19:05] MED LIST changes: +Aspirin Chewable 81 MG TAB ONE; -Iopamidol 370 76% 125 ML VIAL FS ONE; -Sodium Chloride 0.9% 100 ML BAG ONE
[2019-12-11 19:44] LABS: Carbon Dioxide 25 mmol/L (22-29); Chloride 103 mmol/L (98-107); Potassium 3.6 mmol/L (3.5-5.1); Sodium 140 mmol/L (136-145)
[2019-12-11 19:45] LABS: Anion Gap 16 mmol/L (10-20); BUN (Urea Nitrogen) 16 mg/dL (8.9-20.6); Bilirubin, Total 0.6 mg/dL (0.2-1.2); Calc. Creatinine Clearance 0 mL/min (70-130); Calcium 8.9 mg/dL (7.8-10.44); Estimated GFR-MDRD 82; Glucose 107 mg/dL (70-105); Protein, Total 6.7 g/dL (6.0-8.3)
[2019-12-11 19:46] LABS: ALT (SGPT) 26 U/L (8-55); AST (SGOT) 14 U/L (5-34); Albumin 4.5 g/dL (3.5-5.0); Alkaline Phosphatase 70 U/L (40-110); Globulin 2.2 g/dL (2.4-3.5)
[2019-12-11 19:48] LABS: %Lymphocytes 30.2 % (21.0-51.0); %Monocytes 8.9 % (0.0-10.0); %Neutrophils 56.9 % (42.0-75.0); Hemoglobin 16.8 g/dL (14.0-18.0); Mean Corpuscular HGB CONC 32.8 g/dL (32.0-36.0); Mean Corpuscular Hemoglobin 30.9 pg (27.0-31.0); Mean Corpuscular Volume 94.1 fL (78.0-98.0); Mean Platelet Volume 8.5 fL (7.4-10.4); Platelet Count 285 thou/uL (130-400); RBC Distribution Width 11.3 % (11.5-14.5); Red Blood Cell (RBC) Count 5.45 mill/uL (4.70-6.10); White Blood Cell (WBC) Count 10.5 thou/uL (4.8-10.8)
[2019-12-11 19:49] LABS: #Basophils 0.2 thou/uL (0.0-0.2); #Eosinphils 0.3 thou/uL (0.0-0.7); #Lymphocytes 3.2 thou/uL (1.20-3.40); #Monocytes 0.9 thou/uL (0.11-0.59); %Basophils 1.6 % (0.0-1.0); %Eosinophils 2.4 % (0.0-10.0)
--- NOTE | 2019-12-11 19:55 | RAD ---
PORTABLE CHEST: 12/11/19 HISTORY: Chest pain. COMPARISON: 02/09/19. Lungs appear clear of infiltrate. Heart size is upper normal and stable. Vascular markings upper norm al and stable. Transvenous pacemaker leads are unchanged. IMPRESSION: No acute process. POS: [facility]
== END 2019-12-11 21:05 | disposition short-term general hospital (02) ==
LOC: MADERS 19:05
DX: R07.9 Chest pain, unspecified (principal); I25.2 Old myocardial infarction; E03.9 Hypothyroidism, unspecified; Z86.73 Personal history of transient ischemic attack (TIA), and cerebral infarction without residual deficits; F17.210 Nicotine dependence, cigarettes, uncomplicated; F43.10 Post-traumatic stress disorder, unspecified; Z79.82 Long term (current) use of aspirin; Z79.899 Other long term (current) drug therapy
CPT/HCPCS: 71045; 80053; 83880; 84484; 85025; 93005

== ENCOUNTER 2020-01-22 17:30 | Emergency (ER) | payer MEDICARE ==
[~2020-01-22 17:30] MED LIST changes: -Aspirin Chewable 81 MG TAB ONE; +Sodium Chloride Irrig Solution 250 ML BOT ONE
[2020-01-22] MEDS ORDERED: Lidocaine 1% w/Epinephrine 1:100K 20 ML VIAL ONE (18:07)
[2020-01-22] MEDS ORDERED: Lidocaine 1% (PF) 30 ML VIAL ONE (18:08)
[2020-01-22] MEDS ORDERED: Lidocaine 1% 20 ML MDV ONE (18:09)
--- NOTE | 2020-01-22 18:21 | RAD ---
RIGHT HAND THREE VIEWS: 01/22/20 HISTORY: Hand injury. A slightly comminuted, mainly transversely oriented fracture of the more proximal aspect of the dista l phalanx of the thumb is noted. Old fifth metacarpal fractures incidentally seen. IMPRESSION: Transversely oriented distal phalanx thumb fracture. POS: [facility]
[2020-01-22] MEDS ORDERED: Adacel (T-DAP) 0.5 ML SYRINGE ONE (20:22)
[2020-01-22] MEDS ORDERED: CEFAZOLIN 1 GM VIAL ONE (20:22)
--- NOTE | 2020-01-22 20:48 | RAD ---
RIGHT FINGER TWO VIEW: 01/22/20 HISTORY: Injury. COMPARISON: Hand radiograph ten days ago. FINDINGS: Improved alignment of the comminuted fracture distal phalanx of the thumb likely open. IMPRESSION: Satisfactory post reduction appearance. POS: [facility]
[2020-01-22] MEDS ORDERED: HYDROcodone/Acetaminophen 10/325 mg Tablet ONE (21:08)
== END 2020-01-22 21:10 | disposition home or self-care (01) ==
LOC: MADERS 17:30
DX: S62.521A Displaced fracture of distal phalanx of right thumb, initial encounter for closed fracture (principal); S61.011A Laceration without foreign body of right thumb without damage to nail, initial encounter; I10 Essential (primary) hypertension; I25.2 Old myocardial infarction; E03.9 Hypothyroidism, unspecified; F43.10 Post-traumatic stress disorder, unspecified; F17.210 Nicotine dependence, cigarettes, uncomplicated; Z79.82 Long term (current) use of aspirin; Z79.02 Long term (current) use of antithrombotics/antiplatelets; Z86.73 Personal history of transient ischemic attack (TIA), and cerebral infarction without residual deficits; Z23 Encounter for immunization; Z79.899 Other long term (current) drug therapy; W28.XXXA Contact with powered lawn mower, initial encounter
CPT/HCPCS: 12002; 26755; 90471; 90715; 96372; J0690; J2001

== ENCOUNTER 2020-07-05 11:51 | Outpatient (CLI) | payer MEDICARE ==
--- NOTE | 2020-07-05 12:13 | RAD ---
XR Foot Rt 3 View STANDARD HISTORY: Right foot pain FINDINGS: No fracture or dislocation is identified. A small posterior calcaneal spur is present
== END 2020-07-05 11:52 | disposition home or self-care (01) ==
LOC: MADRAD 11:51
PROVIDERS: ATTEND Family Medicine
DX: M79.671 Pain in right foot (principal)

== ENCOUNTER 2020-08-07 19:24 | Emergency (ER) | payer MEDICARE ==
[2020-08-07] MEDS ORDERED: Sulfameth/Trimethoprim DS 800-160mg TAB ONE (20:11)
[2020-08-07] MEDS ORDERED: Boostrix 0.5 ML (Tdap) VIAL ONE (20:11)
== END 2020-08-07 20:30 | disposition home or self-care (01) ==
LOC: MADERS 19:24
DX: S81.851A Open bite, right lower leg, initial encounter (principal); F17.210 Nicotine dependence, cigarettes, uncomplicated; I25.2 Old myocardial infarction; E03.9 Hypothyroidism, unspecified; I10 Essential (primary) hypertension; I71.2 Thoracic aortic aneurysm, without rupture; F43.10 Post-traumatic stress disorder, unspecified; Z86.73 Personal history of transient ischemic attack (TIA), and cerebral infarction without residual deficits; W54.0XXA Bitten by dog, initial encounter
CPT/HCPCS: 90471; 90715

== ENCOUNTER 2021-04-20 17:48 | Emergency (ER) | payer MEDICARE ==
[~2021-04-20 17:48] MED LIST changes: +Iopamidol 370 76% 125 ML VIAL FS ONE; -Sodium Chloride Irrig Solution 250 ML BOT ONE
[2021-04-20 19:15] LABS: #Basophils 0.2 thou/uL (0.0-0.2); #Eosinphils 0.2 thou/uL (0.0-0.7); #Neutrophils 8.3 thou/uL (1.40-6.50); %Basophils 1.4 % (0.0-1.0); %Eosinophils 1.6 % (0.0-10.0); %Lymphocytes 23.9 % (21.0-51.0); Hemoglobin 18.2 g/dL (14.0-18.0); Mean Corpuscular HGB CONC 32.5 g/dL (32.0-36.0); Mean Corpuscular Hemoglobin 31.5 pg (27.0-31.0); Mean Corpuscular Volume 96.8 fL (78.0-98.0); Mean Platelet Volume 8.9 fL (7.4-10.4); Platelet Count 267 thou/uL (130-400); Red Blood Cell (RBC) Count 5.77 mill/uL (4.70-6.10); White Blood Cell (WBC) Count 12.7 thou/uL (4.8-10.8)
[2021-04-20 19:28] LABS: ALT (SGPT) 28 U/L (8-55); AST (SGOT) 13 U/L (5-34); Albumin 4.6 g/dL (3.5-5.0); Alkaline Phosphatase 90 U/L (40-110); Anion Gap 18 mmol/L (10-20); BUN (Urea Nitrogen) 13 mg/dL (8.9-20.6); Bilirubin, Total 0.5 mg/dL (0.2-1.2); Calc. Creatinine Clearance 0 mL/min (70-130); Calcium 9.2 mg/dL (7.8-10.44); Carbon Dioxide 23 mmol/L (22-29); Chloride 104 mmol/L (98-107); Globulin 2.9 g/dL (2.4-3.5); Glucose 118 mg/dL (70-105); Lipase 21 U/L (8-78); Potassium 3.9 mmol/L (3.5-5.1); Protein, Total 7.5 g/dL (6.0-8.3); Sodium 141 mmol/L (136-145)
[2021-04-20] MEDS ORDERED: Sodium Chloride 0.9% 500 ML ONE (20:33)
[2021-04-20 20:46] LABS: Bilirubin Negative (Negative); Blood, Urine Negative (Negative); Clarity Clear (Clear); Glucose, Urine (Dipstick) Negative (Negative); Ketone, Urine Negative (Negative); Leukocyte Negative (Negative); Nitrite Negative (Negative); Protein, Urine (Dipstick) Negative (Neg-Trace); Urobilinogen 0.2 mg/dL (Less than 2)
== END 2021-04-20 21:50 | disposition home or self-care (01) ==
LOC: MADERS 17:48
DX: R10.13 Epigastric pain (principal); M54.5 Low back pain; D72.829 Elevated white blood cell count, unspecified; I11.0 Hypertensive heart disease with heart failure; I50.9 Heart failure, unspecified; I95.9 Hypotension, unspecified; I71.2 Thoracic aortic aneurysm, without rupture; I25.2 Old myocardial infarction; E03.9 Hypothyroidism, unspecified; I10 Essential (primary) hypertension; F17.210 Nicotine dependence, cigarettes, uncomplicated; Z79.899 Other long term (current) drug therapy; Z79.82 Long term (current) use of aspirin; Z86.73 Personal history of transient ischemic attack (TIA), and cerebral infarction without residual deficits
CPT/HCPCS: 71275; 74174; 80053; 81003; 83605; 83690; 84484; 85025; 93005; J7030; Q9967

== ENCOUNTER 2021-04-26 08:21 | Outpatient (CLI) | payer MEDICARE | END 2021-04-26 08:22 | disposition home or self-care (01) | LOC: MADLAB 08:21 → MADRAD 08:22 | PROVIDERS: ATTEND Family Medicine | DX: R10.11 Right upper quadrant pain (principal); K82.4 Cholesterolosis of gallbladder | CPT/HCPCS: 76705 ==

== ENCOUNTER 2021-07-10 11:45 | Emergency (ER) | payer MEDICARE, OTHER | END 2021-07-10 12:00 | disposition home or self-care (01) | LOC: MADERS 11:45 | DX: S51.852A Open bite of left forearm, initial encounter (principal); S61.452A Open bite of left hand, initial encounter; I71.4 Abdominal aortic aneurysm, without rupture; I25.2 Old myocardial infarction; E03.9 Hypothyroidism, unspecified; F17.210 Nicotine dependence, cigarettes, uncomplicated; Z86.73 Personal history of transient ischemic attack (TIA), and cerebral infarction without residual deficits; W54.0XXA Bitten by dog, initial encounter | CPT/HCPCS: 99283 ==